=== PATIENT | female | born 2005 | race Caucasian/White ===

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

== ENCOUNTER 2023-12-02 18:49 | Inpatient (IN) | payer MEDICAID ==
[~2023-12-02] VITALS: Ht 162.6 cm; Wt 148.6 kg
[2023-12-02 19:30] VITALS: BP 138/90; PULSE 97; TEMP 98.3
[2023-12-02] MEDS ORDERED: miSOPROStol 25 MCG (1/4th of 100 MCG) TAB VG SCH (19:45)
[2023-12-02] MEDS ORDERED: Terbutaline 1 MG/ML 1 ML AMP SQ PRN (19:45)
[2023-12-02] MEDS ORDERED: LR 1,000 ML IV SCH (19:45)
[2023-12-02] MEDS ORDERED: LR & Oxytocin 500 ML IV SCH (19:45)
[2023-12-02] MEDS ORDERED: LR 1,000 ML IV PRN (19:45)
[2023-12-02 20:22] LABS: BASO % 0.2 % (0.0-2.0); EOS # 0.2 K/mm3 (0.0-0.7); GRAN # 12.4 K/mm3 (1.4-6.5); GRAN % 80.5 % (42.2-75.2); HEMOGLOBIN 11.7 g/dl (12.0-15.0); LYMPH % 13.1 % (20.0-51.0); MEAN CELL VOLUME 82 fl (80.0-95.0); MEAN CORPUSCULAR HEMOGLOBIN 27 pg (26-32); MEAN CORPUSCULAR HGB CONC 33 g/dl (33.0-37.0); MEAN PLATELET VOLUME 9.9 fl (7.4-10.4); MONO # 0.6 K/mm3 (0.1-0.6); MONO % 4.2 % (1.7-9.3); PLATELET COUNT 306 K/mm3 (130-400); RED BLOOD COUNT 4.36 M/mm3 (4.10-5.30); REDCELL DISTRIBUTION WIDTH-CV 13.4 % (11.5-14.5)
[2023-12-02 20:23] LABS: HEMATOCRIT 35.6 % (35.0-45.0)
[2023-12-02 20:39] LABS: ALBUMIN 2.6 g/dL (3.5-5.0); BILIRUBIN,TOTAL 0.2 mg/dL (0.2-1.2); CALCIUM 8.9 mg/dL (8.4-10.2); CREATININE, serum 0.65 mg/dL (0.57-1.11); POTASSIUM 3.8 mEq/L (3.5-4.5); TOTAL PROTEIN 6.6 g/dl (6.2-8.1)
[2023-12-02 21:30] VITALS: BP 133/76; PULSE 76
[2023-12-02 22:00] VITALS: BP 134/67; PULSE 71
[2023-12-02 22:59] VITALS: BP 130/67; PULSE 76
[2023-12-02 23:30] VITALS: BP 134/67; PULSE 71; TEMP 98.2
[2023-12-03] VITALS (77 sets, daily range): BP systolic 113–186; BP diastolic 56–94; PULSE 61–111; TEMP 97.5–99.4
[2023-12-03] MEDS ORDERED: diphenhydrAMINE 25 MG CAP PO PRN ×2 (01:00→10:00)
[2023-12-03] MEDS ORDERED: Naloxone 0.4 MG/ML VIAL IV PRN ×3 (01:00→22:30)
[2023-12-03] MEDS ORDERED: ePHEDrine 50 MG/10 ML VIAL IV PRN ×2 (01:00→10:00)
[2023-12-03] MEDS ORDERED: diphenhydrAMINE 50 MG/ML 1 ML VIAL IV PRN ×2 (01:00→10:00)
[2023-12-03] MEDS ORDERED: Ondansetron 4 MG/2 ML VIAL IV PRN ×3 (01:00→22:30)
--- NOTE | 2023-12-03 02:30 | NUR ---
PT PRESENTS TO L&D WITH C/O NOT FEELING THE BABY MOVE. SHE TRIED DRINKING COLD WATER AND EATING PUDDING SHE ONLY FELT IT MOVE 3 TIMES. SHE HAS A HX OF HAVING 10 MISCARRIAGES. SHE IS A 15/ P 4, PREVIOUS C/S X 4. PT WAS ASSISTED TO BED, MONITORS ON FHR 135-140, REACTIVE MODERATE VARIBILITY. PT IS 28.5 WEEKS. BP IS 147/90, 144/78. HR 90, R 20. TEMP 98.1. PT IS PLANNING TO DELIVER IN [place] WHEN IT'S TIME. SHE WAS VERY WORRIED ABOUT NOT FEELING THE BABY MOVE AND DID NOT WANT TO DRIVE ALL THE WAY TO [place] IF THERE WAS SOMETHING WRONG WITH THE BABY. DR ROMERO SPIRITUAL CARE COORDINATOR, SHE WAS NOTIFIED OF PT'S CONCERNS AND ASSESSMENT, MEDICATIONS, VS, FHR NO CTX'S. ORDERS NOTED PT MAY GO HOME AFTER A GOOD 20 MIN STRIP IS OBTAINED.
--- NOTE | 2023-12-03 06:03 | NUR ---
CTX'S HAVE BEEN 1-3 MINS APART. HAVE ONLY GONE UP TO 4 MU. PT STATES SHE FEELS A LITTLE PRESSURE WITH CTX'S BUT THEY ARE NOT PAINFUL.
--- NOTE | 2023-12-03 06:15 | NUR ---
PT AMBULATORY TO BATHROOM, UNABLE TO TRACE EFM AND TOCO DUE TO MATERNAL POSITION AND HABITUS, AWAKE AND ALERT X3, PT SPOUSE SUPPORTIVE AT BEDSIDE.
--- NOTE | 2023-12-03 06:45 | NUR ---
DIFFICULT TO TRACE EFM DUE TO MATERNAL POSITION AND HABITUS, THIS RN AT PT BEDSIDE CHANGING PT POSITION ATTEMPTING TO TRACE, PT VS STABLE, AWAKE AND ALERT X3.
[2023-12-03] MEDS ORDERED: ROPivacaine PF 0.2% 200 ML IV ONE (07:41)
--- NOTE | 2023-12-03 08:00 | NUR ---
UNABLE TO TRACE EFM AND TOCO DUE TO MATERNAL POSITION AND HABITUS DURING EPIDURAL PROCEDURE. THIS RN AT PT BEDSIDE, PT VS STABLE, PT AWAKE AND ALERT X3, REPORTS PAIN WITH CONTRACTIONS IN HER BACK AT THIS TIME.
--- NOTE | 2023-12-03 08:24 | NUR ---
0756 LOAN JOYNER AT PT BEDSIDE EDUCATING AND DISCUSSING PT EPIDURAL PROCEDURE, PT VERBALLY UNDERSTANDING AND CONSENTING. PT SITTING IN MIDDLE OF BED DANGLINING FEET. THIS RN AT BEDSIDE AND PT SPOUSE SUPPORTIVE AT BEDSIDE, PT VS STABLE, AWAKE AND ALERT X3. 0824 TEST DOSE ADMINISTERED PER LOAN JOYNER, PT TOLERATED WELL. PT BLOOD PRESSURE AT 176/82 AT 0825, PT HEART RATE 96. PT AWAKE AND ALERT X3 AND REPORTED "STINGING PAIN AT TIMES" BEFORE TEST DOSE, AT THIS TIME PT NOT REPORTING PAIN. 0830 PT REPOSITIONED COMFORTABLY WEDGED LEFT SIDE. PT BLOOD PRESSURE 178/88, HEART RATE 90. BLOOD PRESSURE CUFF POPPED OFF PT ARM, THIS RN CHANGES CUFF POSITION ON PT RIGHT FOREARM, BLOOD PRESSURE AFTER IS 142/64 HEART RATE 81. PT AWAKE AND ALERT X3, REPORTS "I CANT FEEL ANYTHING NOW." PT SPOUSE SUPPORTIVE AT BEDSIDE. LOAN JOYNER AT BEDSIDE SETTING UP EPIDURAL PUMP AND ANSWERING PT EPIDURAL QUESTIONS.
--- NOTE | 2023-12-03 08:30 | NUR ---
UNABLE TO TRACE FHR DUE TO MATERNAL POSITION AND HABITUS, PT SITTING UPRIGHT FOR EPIDURAL PROCEDURE PER LOAN CARNALLITE PLANT OPERATOR. THIS RN AT PT BEDSIDE
--- NOTE | 2023-12-03 14:50 | NUR ---
1450 FHR RECURRENT LATE DECELERATIONS BEGUN, THIS RN IN PT ROOM TO CHANGE PT POSITION TO WEDGE LEFT WITH PEANUT BALL, FLUID BOLUS BEGUN. PT VS STABLE, AWAKE AND ALERT X3. 1520 FHR RECURRENT LATE DECELERATIONS, THIS RN AT PT BEDSIDE CHANGING PT POSITION TO RIGHT LATERAL WITH A PEANUT BALL. PT VS STABLE, AWAKE AND ALERT X3. 1548 NOTIFIED OF LATE DECELERATIONS STARTING AT 1450, PT POSITION CHANGES, SVE AT 1430 4/80/-2, AND FLUID BOLUS OF 4TH BAG OF FLUID. ORDERS TO CONTINUE TO MONITOR, OBSERVE FOR CHANGES, AND CALL WITH UPDATES. PT VS STABLE, PT SPOUSE SUPPORTIVE AT BEDSIDE.
--- NOTE | 2023-12-03 18:45 | NUR ---
PT CONTINUES TO BE COMFORTABLE WITH EPIDURAL HAS SOME MOVEMENT OF HER LEGS. PT ASSISTED INTO LEFT FLYING COWGIRL WITH PEANUT BALL.
--- NOTE | 2023-12-03 19:15 | NUR ---
PT MOVED TO RT FLYING COWGIRL POSITION. TOLERATES MOVING WELL.
--- NOTE | 2023-12-03 19:30 | NUR ---
PT COMPLAINS OF FEELING RECTAL PRESSURE AND REQUESTS TO BE CHECKED. SVE /-1 TO -2. PT MOVED BACK TO PRINCES POSITION PER REQUEST.
--- NOTE | 2023-12-03 19:50 | NUR ---
ROLES TO BEDSIDE. EZRA AGREES WITH NURSE EXAM. SMALL CHANGE FROM WHEN [facility] PLACED. WILL MONITOR FOR ANOTHER HOUR TO SEE IF CERVIX CHANGES.
--- NOTE | 2023-12-03 20:15 | NUR ---
MOVED TO LEFT LATERAL RUNNERS POSITION
--- NOTE | 2023-12-03 20:32 | NUR ---
MOVED PT RO RT LATERAL RUNNERS. PT STILL TOLERATING ACTIVITY WELL AND ABLE TO MOVE WELL.
--- NOTE | 2023-12-03 21:04 | NUR ---
DECISION FOR AFTER MD DISCUSSED WITH PT. 2106-PITOCIN OFF. 2112-SHAVE PREP AND ABDOMINAL WASH COMPLETE 2120-TELEVISION STATION MANAGER TO BEDSIDE 2127-TO OR PER BED
[2023-12-03] MEDS ORDERED: Chloroprocaine PF 3% (30 MG/ML) 20 ML VIAL ONE (21:17)
[2023-12-03] MEDS ORDERED: Azithromycin 500 MG in NS 250 ML IV ONE (21:30)
[2023-12-03] MEDS ORDERED: fentaNYL 50 MCG/ML 2 ML VIAL ONE (21:47)
[2023-12-03] MEDS ORDERED: NS 20 ML IV ONE (21:47)
[2023-12-03] MEDS ORDERED: Oxytocin 10 UNITS/ML VIAL ONE (21:47)
[2023-12-03] MEDS ORDERED: Ketorolac 30 MG/ML VIAL ONE (21:51)
[2023-12-03] MEDS ORDERED: Ondansetron 4 MG/2 ML VIAL ONE (21:51)
[2023-12-03] MEDS ORDERED: Loratadine 10 MG TAB PO PRN (22:30)
[2023-12-03] MEDS ORDERED: LR 1,000 ML IV PRN (22:30)
[2023-12-03] MEDS ORDERED: Measles/Mumps/Rubella Virus Vaccine Live w Diluent 0.5 ML VIAL SQ SCH (22:30)
[2023-12-03] MEDS ORDERED: oxyCODONE 5 MG TAB PO PRN (22:30)
[2023-12-03] MEDS ORDERED: Magnes Hydrox (MOM) 80 MG/ML 30 ML CUP PO PRN (22:30)
[2023-12-03] MEDS ORDERED: Acetaminophen 500 MG TAB PO SCH (22:30)
--- NOTE | 2023-12-03 22:30 | NUR ---
TO PACU PER BED. FUNDAL MESSAGE PRIOR TO TRANSFER. FUNDUS FIRM. EXPRESSED A FEW SMALL CLOTS. TRANSFERRED WITHOUT DIFFICULTY. PT ALERT AND STABLE. FUNDAL CHECKS UNCOMFORTABLE BUT OTHERWISE NOT HAVING PAIN.
[2023-12-04] VITALS (8 sets, daily range): BP systolic 112–133; BP diastolic 54–74; PULSE 67–81; TEMP 98–98.9
[2023-12-04] MEDS ORDERED: Ibuprofen 800 MG TAB PO SCH (04:17)
--- NOTE | 2023-12-04 07:00 | NUR ---
3500-0412 PT DID NOT USE INCENTIVE SPIROMETER AT THIS TIME DUE TO BREAST FEEDING AND EDUCATION. THIS RN AT PT BEDSIDE EDUCATING PT ON BREAST FEEDING AND INCENTIVE SPIROMETER USE.
[2023-12-04] MEDS ORDERED: Sennosides/Docusate 8.6-50 MG TAB PO SCH (08:00)
--- NOTE | 2023-12-04 11:06 | NUR ---
PT ASLEEP IN BED AT THIS TIME, DID NOT USE INCENTIVE SPIROMETER.
[2023-12-04] MEDS ORDERED: Rho(D) Imm Globulin 1,500 UNITS (300 MCG)/2 ML SYRINGE IV\\IM SCH (12:00)
[2023-12-05 08:00] VITALS: BP 142/86; PULSE 93; TEMP 98.7
[2023-12-05] MEDS ORDERED: IBU800 M1 PO (08:18)
== END 2023-12-05 12:55 | disposition home or self-care (01) | DRG 540 ==
LOC: OB 18:49 → LDR 19:04 → OB 12-03 22:00
PROVIDERS: ADMIT Obstetrics & Gynecology
PROC: 3E0P7VZ Introduction of Hormone into Female Reproductive, Via Natural or Artificial Opening (ICD-10-PCS; 2023-12-02)
PROC: 3E033VJ Introduction of Other Hormone into Peripheral Vein, Percutaneous Approach (ICD-10-PCS; 2023-12-02)
PROC: 10D00Z1 Extraction of Products of Conception, Low, Open Approach (ICD-10-PCS; principal; 2023-12-03)
PROC: 10907ZC Drainage of Amniotic Fluid, Therapeutic from Products of Conception, Via Natural or Artificial Opening (ICD-10-PCS; 2023-12-03)
PROC: 3E0234Z Introduction of Serum, Toxoid and Vaccine into Muscle, Percutaneous Approach (ICD-10-PCS; 2023-12-04)
DX: O13.4 Gestational [pregnancy-induced] hypertension without significant proteinuria, complicating childbirth (principal); O62.0 Primary inadequate contractions; O26.893 Other specified pregnancy related conditions, third trimester; O99.213 Obesity complicating pregnancy, third trimester; Z3A.39 39 weeks gestation of pregnancy; Z37.0 Single live birth
CPT/HCPCS: J0665; J0690; J1885; J2401; J2405; J2590; J2704; J2791; J2795; J3010; J7120